=== PATIENT | male | born 1980 | race Two or more races ===

== ENCOUNTER 2020-02-11 08:43 | Emergency (ER) | payer OTHER, SELFPAY ==
[2020-02-11 08:53] VITALS: BP 122/71; PULSE 84; RESP 17; TEMP 36.7; O2SAT 97; BMI 29.2
--- NOTE | 2020-02-11 08:55 | CT_ITS ---
EXAMINATION: CT HEAD WITHOUT CONTRAST CT CERVICAL SPINE WITHOUT CONTRAST CLINICAL INFORMATION: Fall COMPARISON: None. TECHNIQUE: Multidetector CT imaging of the head and cervical spine was performed without the use of intravenous contrast. Multiplanar reformats are reviewed. DLP: 1196 mGy-cm. FINDINGS: There is no evidence of acute intracranial hemorrhage or territorial infarction. No abnormal mass effect or midline shift is seen. Marie to white matter differentiation is well preserved. No extra-axial fluid collections are identified. The ventricles are normal in size. There is no abnormal attenuation within the brain parenchyma. The osseous structures and soft tissues are normal. The mastoid air cells and visualized portions of the paranasal sinuses are well-aerated. Atlantooccipital alignment is maintained. The vertebral bodies and posterior elements align normally. No acute fracture or subluxation. Vertebral body heights and intervertebral disc spaces are preserved. No significant degenerative changes are appreciated. No central canal or foraminal narrowing. The cervicomedullary junction and spinal cord are grossly unremarkable. The paraspinal soft tissues are unremarkable. The imaged lung apices are clear CT/CT head/brain wo con IMPRESSION: No acute intracranial pathology.c No cervical spine fracture or subluxation.
--- NOTE | 2020-02-11 08:55 | CT_ITS ---
EXAMINATION: CT HEAD WITHOUT CONTRAST CT CERVICAL SPINE WITHOUT CONTRAST CLINICAL INFORMATION: Fall COMPARISON: None. TECHNIQUE: Multidetector CT imaging of the head and cervical spine was performed without the use of intravenous contrast. Multiplanar reformats are reviewed. DLP: 1196 mGy-cm. FINDINGS: There is no evidence of acute intracranial hemorrhage or territorial infarction. No abnormal mass effect or midline shift is seen. Marie to white matter differentiation is well preserved. No extra-axial fluid collections are identified. The ventricles are normal in size. There is no abnormal attenuation within the brain parenchyma. The osseous structures and soft tissues are normal. The mastoid air cells and visualized portions of the paranasal sinuses are well-aerated. Atlantooccipital alignment is maintained. The vertebral bodies and posterior elements align normally. No acute fracture or subluxation. Vertebral body heights and intervertebral disc spaces are preserved. No significant degenerative changes are appreciated. No central canal or foraminal narrowing. The cervicomedullary junction and spinal cord are grossly unremarkable. The paraspinal soft tissues are unremarkable. The imaged lung apices are clear CT/CT cervical spine wo con IMPRESSION: No acute intracranial pathology.c No cervical spine fracture or subluxation.
--- NOTE | 2020-02-11 08:55 | XR_ITS ---
EXAMINATION: XR SHOULDER, LEFT XR RIBS, LEFT XR LUMBAR SPINE XR SACRUM AND COCCYX CLINICAL INFORMATION: Fall off 6 foot ladder with left shoulder pain, left rib pain and low back pain. COMPARISON: Left rib radiographs 06/03/2018. TECHNIQUE: Left shoulder, AP and transscapular Y views, 4 views of the left ribs including a PA chest, AP and lateral views of the lumbar spine and 3 views of the sacrum and coccyx. FINDINGS: Left shoulder: Normal alignment without fracture or dislocation seen. Left RIBS: The lungs are clear with no evidence of pneumothorax or pleural effusion. The heart and mediastinum are not widened. No displaced rib fractures are seen. No evidence of left clavicle fracture. Lumbar spine: Alignment, vertebral body and disc height is maintained without evidence of fracture. Sacrum and coccyx: The visualized bones of the pelvis are normal. No sacral or coccygeal fractures are demonstrated. Alignment is maintained. XR/XR sacrum coccyx min 2V IMPRESSION: No visible left shoulder, left rib or lumbosacral spine fractures are demonstrated. Normal alignment.
--- NOTE | 2020-02-11 08:55 | XR_ITS ---
EXAMINATION: XR SHOULDER, LEFT XR RIBS, LEFT XR LUMBAR SPINE XR SACRUM AND COCCYX CLINICAL INFORMATION: Fall off 6 foot ladder with left shoulder pain, left rib pain and low back pain. COMPARISON: Left rib radiographs 06/03/2018. TECHNIQUE: Left shoulder, AP and transscapular Y views, 4 views of the left ribs including a PA chest, AP and lateral views of the lumbar spine and 3 views of the sacrum and coccyx. FINDINGS: Left shoulder: Normal alignment without fracture or dislocation seen. Left RIBS: The lungs are clear with no evidence of pneumothorax or pleural effusion. The heart and mediastinum are not widened. No displaced rib fractures are seen. No evidence of left clavicle fracture. Lumbar spine: Alignment, vertebral body and disc height is maintained without evidence of fracture. Sacrum and coccyx: The visualized bones of the pelvis are normal. No sacral or coccygeal fractures are demonstrated. Alignment is maintained. XR/XR ribs LT min 3V w CXR1V IMPRESSION: No visible left shoulder, left rib or lumbosacral spine fractures are demonstrated. Normal alignment.
--- NOTE | 2020-02-11 08:55 | XR_ITS ---
EXAMINATION: XR SHOULDER, LEFT XR RIBS, LEFT XR LUMBAR SPINE XR SACRUM AND COCCYX CLINICAL INFORMATION: Fall off 6 foot ladder with left shoulder pain, left rib pain and low back pain. COMPARISON: Left rib radiographs 06/03/2018. TECHNIQUE: Left shoulder, AP and transscapular Y views, 4 views of the left ribs including a PA chest, AP and lateral views of the lumbar spine and 3 views of the sacrum and coccyx. FINDINGS: Left shoulder: Normal alignment without fracture or dislocation seen. Left RIBS: The lungs are clear with no evidence of pneumothorax or pleural effusion. The heart and mediastinum are not widened. No displaced rib fractures are seen. No evidence of left clavicle fracture. Lumbar spine: Alignment, vertebral body and disc height is maintained without evidence of fracture. Sacrum and coccyx: The visualized bones of the pelvis are normal. No sacral or coccygeal fractures are demonstrated. Alignment is maintained. XR/XR shoulder LT min 2V IMPRESSION: No visible left shoulder, left rib or lumbosacral spine fractures are demonstrated. Normal alignment.
--- NOTE | 2020-02-11 08:55 | XR_ITS ---
EXAMINATION: CR LEFT FOREARM. CR LEFT WRIST. CLINICAL INFORMATION: Patient fell of a 6 foot ladder and is complaining of left distal forearm and wrist pain. COMPARISON: None TECHNIQUE: Frontal and lateral views of the left forearm performed on 3 images. 3 views of the left wrist. FINDINGS: Left forearm and wrist: Mild dorsal soft tissue swelling about the wrist. There is subtle irregularity of the distal radial metaphyseal cortex, most likely representing irregularities of the axial diffusion plate. No definite fracture lucency or disruption of the bony trabeculae is seen. No acute fracture or dislocation. No radiopaque foreign body in the soft tissues. No elbow joint effusion. Mild cystic changes in the carpal bones. XR/XR forearm LT 2V IMPRESSION: No definite acute fracture of the left forearm or wrist. As discussed above, there is slight irregularity of the distal radial cortex, most likely related to irregularities of the epiphyseal fusion plate. Close clinical correlation is requested. Given the patient's history of trauma and associated soft tissue swelling about the wrist, if patient's symptoms do not resolve as anticipated, repeat radiograph of the left wrist is recommended for reassessment and exclusion of a subtle occult radial fracture.
--- NOTE | 2020-02-11 08:55 | XR_ITS ---
EXAMINATION: XR SHOULDER, LEFT XR RIBS, LEFT XR LUMBAR SPINE XR SACRUM AND COCCYX CLINICAL INFORMATION: Fall off 6 foot ladder with left shoulder pain, left rib pain and low back pain. COMPARISON: Left rib radiographs 06/03/2018. TECHNIQUE: Left shoulder, AP and transscapular Y views, 4 views of the left ribs including a PA chest, AP and lateral views of the lumbar spine and 3 views of the sacrum and coccyx. FINDINGS: Left shoulder: Normal alignment without fracture or dislocation seen. Left RIBS: The lungs are clear with no evidence of pneumothorax or pleural effusion. The heart and mediastinum are not widened. No displaced rib fractures are seen. No evidence of left clavicle fracture. Lumbar spine: Alignment, vertebral body and disc height is maintained without evidence of fracture. Sacrum and coccyx: The visualized bones of the pelvis are normal. No sacral or coccygeal fractures are demonstrated. Alignment is maintained. XR/XR lumbar spine 2-3V IMPRESSION: No visible left shoulder, left rib or lumbosacral spine fractures are demonstrated. Normal alignment.
--- NOTE | 2020-02-11 09:01 | XR_ITS ---
EXAMINATION: CR LEFT FOREARM. CR LEFT WRIST. CLINICAL INFORMATION: Patient fell of a 6 foot ladder and is complaining of left distal forearm and wrist pain. COMPARISON: None TECHNIQUE: Frontal and lateral views of the left forearm performed on 3 images. 3 views of the left wrist. FINDINGS: Left forearm and wrist: Mild dorsal soft tissue swelling about the wrist. There is subtle irregularity of the distal radial metaphyseal cortex, most likely representing irregularities of the axial diffusion plate. No definite fracture lucency or disruption of the bony trabeculae is seen. No acute fracture or dislocation. No radiopaque foreign body in the soft tissues. No elbow joint effusion. Mild cystic changes in the carpal bones. XR/XR wrist LT min 3V IMPRESSION: No definite acute fracture of the left forearm or wrist. As discussed above, there is slight irregularity of the distal radial cortex, most likely related to irregularities of the epiphyseal fusion plate. Close clinical correlation is requested. Given the patient's history of trauma and associated soft tissue swelling about the wrist, if patient's symptoms do not resolve as anticipated, repeat radiograph of the left wrist is recommended for reassessment and exclusion of a subtle occult radial fracture.
--- NOTE | 2020-02-11 09:03 | ED.EXTPRO ---
HPI - Extremity Problem General Chief complaint: Extremity Injury, Upper Stated complaint: L SIDE NUMBNESS Time Seen by Provider: 02/11/20 08:55 Source: patient and industrial engineering intern ( [place] language) Mode of arrival: ambulatory Limitations: no limitations History of Present Illness HPI Narrative: 40-year-old male presented after fell off a 6 ft ladder, landed on his left side, complains of head injury to the left side, few seconds of LOC, complain of neck pain, complained of left shoulder pain, left ribs pain, and left forearm pain. fall have been 1 hour ago, described pain as constant and dull, rated as 10/10, pain with no radiation, other than pain patient declined any other associated factor, nothing relieved the pain or made it worse. Related Data Previous Rx's Medication Instructions Recorded ibuprofen 800 mg PO Q8H PRN #30 tab 02/11/20 oxycodone 5 mg PO Q8H PRN #10 cap 02/11/20 Allergies Allergy/AdvReac Type Severity Reaction Status Date / Time No Known Allergies Allergy Unverified 12/28/19 18:59 [No Known Allergies*] Review of Systems Review of Systems: all other systems are reviewed and are negative Constitutional: Reports as per HPI and Reports no additional constitutional complaints Eyes: Reports as per HPI and Reports no additional eye complaints Reports system reviewed and no additional complaints, except as documented Cardiovascular: Reports as per HPI and Reports no additional cardiovascular complaints Respiratory: Reports as per HPI and Reports no additional respiratory complaints Gastrointestinal: Reports as per HPI and Reports no additional gastrointestinal complaints Genitourinary: Reports no additional female genitourinary complaints Musculoskeletal: Reports no additional musculoskeletal complaints Skin/Breast: Reports system reviewed and no additional complaints, except as docu Psychiatric: Reports no additional psychiatric complaints Endocrine: Reports no additional endocrine complaints Hematologic/Lymphatic: Reports no additional hematologic/lymphatic complaints Allergic/Immunologic: Reports no additional allergic/immunologic complaints Reports system reviewed and no additional complaints, except as documented and Reports Abnormal speech present [facility] Past Medical History Medical History Insulin dependent diabetes mellitus Social History Social History Alcohol intake: never Smoking Status: Never smoker Use of substances other than those prescribed or required for medical reasons: No Advance Directives: No Advance Directives Information Provided: No Physical Exam Vital Signs: Vital Signs: Vital Signs Temp Pulse Resp BP Pulse Ox 02/11/20 10:00 98.2 F 94 16 124/78 98 02/11/20 09:09 16 02/11/20 08:53 98.1 F 84 17 122/71 97 Body Mass Index 29.2 vital signs have been reviewed as normal and appeared to be correct. Blood pressure normal. Heart rate normal. Respiration rate normal. Temperature normal. Oxygen saturation normal. Appearance: Alert. Oriented X3. No acute distress. Head: Normal external exam. Normocephalic. mild left-sided tenderness with no facial step-off, No Patel signs noted. No raccoon eyes noted Eyes: PERRLA. EOMI. Conjunctiva and sclera normal. Eyelids normal. ENT: EAC normal. TM's Normal. Pharynx normal. Uvula midline. Moist mucous membranes. No trismus noted. No drooling noted. No muffled voice noted. Neck: Normal inspection. Neck supple. FROM. No adenopathy. Thyroid Normal. No meningeal signs. No neck mass noted. positive midline about C6-C7 tenderness but no step-off. CVS: Normal heart rate and rhythm. Heart sound normal. No murmurs noted. Pulses normal throughout. Respiratory: No respiratory distress. Painless inspiration. Breath sounds normal. No wheezes/rales/rhonchi noted. Diffuse left-sided ribs pain.. No accessory muscle usage noted or decreased air movement noted. Abdomen: Soft and nontender. Bowel sounds normal in all 4 quadrants. No distention noted. No organomegaly noted. No visible injury noted. Back: No CVA tenderness. Full range of motion noted. Diffuse tenderness more on the lumbar/ sacrum region. Skin: Skin warm and dry. Normal skin color. Normal skin turgor. No rashes/lesions/lacerations noted. Extremities: No lower extremity edema. Extremities exhibit normal range of motion. Tenderness on the left shoulder, held in adduction position was tender abduction, no deformity, neurovascularly intact, distal left forearm a tenderness with swelling, neurovascular exam is intact distally. Neuro: Oriented X 3. No motor deficit. No sensory deficit. Reflexes normal. GCS 15 Course Course Course Narrative: 40-year-old male status post fall from 6 ft ladder landed on his left side, patient complained of left-sided pain, positive head injury with LOC and neck pain. Will obtain multiple radiographic study to rule out acute fracture , pain control with analgesia. MDM - Extremity (Nontraumatic) MDM Narrative Medical decision making narrative: Assessment and plan. 40-year-old male status post fall from 6 ft ladder height landed on his left side, complaining of multiple pain in the head, neck, left shoulder, left forearm, left wrist, lower back, left side of the chest. All radiographic studies of the above are negative for acute fracture. Will discharge the patient with analgesia medication and NSAIDs. Imaging Data CT scan - head: Radiologist's impression: No acute intracranial pathology. Cervical spine CT: Radiologist's impression: no acute cervical spine fracture. Left forearm x-ray: Radiologist's impression: no acute fracture. Lumbar spine/ sacrum x-ray: Radiologist's impression: no acute fracture. Left ribs/ chest x-ray: Radiologist's impression: no acute fracture or acute intrathoracic pathology. Discharge Plan Discharge Clinical Impression: Multiple contusions Fall Qualifiers: Encounter type: initial encounter Qualified Code(s): W19.XXXA - Unspecified fall, initial encounter Patient Disposition: Home, Self-Care Instructions: Contusion in Adults (ED) Prescriptions: New ibuprofen 800 mg tablet 800 mg PO Q8H PRN (Reason: pain) Qty: 30 RF: 0 oxycodone 5 mg capsule 5 mg PO Q8H PRN (Reason: pain) Qty: 10 RF: 0 Referrals: Physician,Unknown [Primary Care Provider] - 2 days
[2020-02-11 09:09] VITALS: RESP 16
[2020-02-11] MEDS: Morphine Sulfate 2 MG/ML CARTRIDGE IM (09:09)
[2020-02-11] MEDS: Ketorolac Tromethamine 60 MG/2 ML VIAL IM (09:09)
[2020-02-11 10:00] VITALS: BP 124/78; PULSE 94; RESP 16; TEMP 36.8; O2SAT 98
[2020-02-11] MEDS: oxyCODONE HCl Immed Release 5 MG TABLET PO (10:18)
== END 2020-02-11 10:56 | disposition home or self-care (01) ==
PROVIDERS: Emergency Provider Emergency Medicine
DX: S10.93XA Contusion of unspecified part of neck, initial encounter (principal); G44.309 Post-traumatic headache, unspecified, not intractable; M54.2 Cervicalgia; M79.602 Pain in left arm; M25.512 Pain in left shoulder; M54.5 Low back pain; R07.81 Pleurodynia; W11.XXXA Fall on and from ladder, initial encounter; Y92.9 Unspecified place or not applicable; Y99.9 Unspecified external cause status
CPT/HCPCS: 70450; 71101; 72100; 72125; 72220; 73030; 73090; 73110; 96372; 99284; J1885; J2270

== ENCOUNTER 2020-12-08 19:33 | Emergency (ER) | payer OTHER, SELFPAY ==
--- NOTE | 2020-12-08 | ECG_ITS ---
Test Reason : DYSPNEA Blood Pressure : / mmHG Vent. Rate : 065 BPM Atrial Rate : 065 BPM P-R Int : 154 ms QRS Dur : 102 ms QT Int : 392 ms P-R-T Axes : 026 007 026 degrees QTc Int : 407 ms Normal sinus rhythm Incomplete right bundle branch block Borderline ECG When compared with ECG of 03-JUN-2018 22:51, No significant change was found Referred By: Generic ED Physician Electronically Signed By:BILLY HUI
--- NOTE | ~2020-12-08 | CT_ITS ---
EXAMINATION: CT ABDOMEN AND PELVIS WITH CONTRAST CLINICAL INFORMATION: Left-sided abdominal pain, suspect diverticulitis COMPARISON: None TECHNIQUE: Multidetector volumetric images were obtained from the superior aspect of the liver through the pubic symphysis following administration 85 mL of Omnipaque 350 intravenous contrast. Sagittal and coronal reformatted images were obtained on the technologist's workstation. Oral contrast: No This CT examination was performed using dose optimization techniques as appropriate, variously including the following: *Automated exposure control *Adjustment of mA and/or kV according to patient size (this includes techniques or standardized protocols for targeted exams where dose is matched to indication/reason for exam; i.e. extremities or head) *Use of iterative reconstruction technique DLP: 618 mGy-cm FINDINGS: LUNG BASES: The visualized lung bases are unremarkable. LIVER, GALLBLADDER, AND BILIARY TREE: The liver is normal in size, shape, and attenuation. No focal hepatic lesion or biliary ductal dilatation is present. The gallbladder is unremarkable with no evidence of radiopaque gallstones, gallbladder wall thickening, or obvious pericholecystic inflammatory changes. PANCREAS: Unremarkable. SPLEEN: Unremarkable. ADRENAL GLANDS: Unremarkable. KIDNEYS AND URETERS: The kidneys are normal in size, shape, and attenuation. No hydronephrosis, hydroureter, or calculi seen. No perinephric stranding. BLADDER: Unremarkable. GASTROINTESTINAL TRACT: The small and large bowel are unremarkable. The appendix is unremarkable. ABDOMINAL WALL: No significant hernia is appreciated. LYMPH NODES: Normal. VASCULAR: Unremarkable. PELVIC VISCERA: Unremarkable. OSSEOUS STRUCTURES: Unremarkable. CT/CT abdomen pelvis w con IMPRESSION: No acute CT findings. No evidence of diverticulitis.
--- NOTE | ~2020-12-08 | XR_ITS ---
EXAMINATION: XR CHEST CLINICAL INFORMATION: Chest pain COMPARISON: 02/11/2020 TECHNIQUE: Frontal view of the chest was obtained. FINDINGS: Normal symmetric lung volumes. No parenchymal consolidation. No pleural effusion. No pneumothorax. Cardiomediastinal silhouette and pulmonary vascularity are within normal limits. No acute osseous abnormalities. XR/XR chest 1V IMPRESSION: Unremarkable examination.
[2020-12-08 19:37] VITALS: BP 133/79; PULSE 74; RESP 18; TEMP 36.8; O2SAT 98; BMI 27.9
--- NOTE | 2020-12-08 19:44 | PC.NURSE ---
called for ekg to be performed
[2020-12-08 20:00] VITALS: BP 124/85; PULSE 70; RESP 26; TEMP 36.7; O2SAT 98
[2020-12-08 21:30] LABS: MANUAL DIFF FLAG NO
[2020-12-08 21:31] LABS: Basophils Absolute Auto 0.1 X10*3/uL (0.0-0.2); Basophils Percent Auto 0.5 % (0-2); Eosinophils Absolute Auto 0.3 X10*3/uL (0.0-0.4); Eosinophils Percent Auto 2.2 % (0-4); Hematocrit 42.8 % (42-52); Hemoglobin 14.5 g/dl (14.0-18.0); Imm Gran Abs Auto 0.04 X10*3/uL (0.00-0.03); Imm Gran Pct Auto 0.3 % (0.0-0.4); Lymphocytes Absolute Auto 4.7 X10*3/uL (1.2-4.9); Mean Corpuscular HGB Conc 33.9 g/dl (31.0-36.0); Mean Corpuscular Hemoglobin 30.1 pg (27.0-33.0); Mean Corpuscular Volume 88.8 fL (80-98); Mean Platelet Volume 9.6 fL (9.4-12.4); Monocytes Percent Auto 7.9 % (2-11); Neutrophils Absolute Auto 6.1 X10*3/uL (2.0-8.3); Neutrophils Percent Auto 50.1 % (45-73); Platelet Count 328 X10*3/uL (160-400); Red Blood Count 4.82 X10*6/uL (4.60-5.80); White Blood Count 12.1 X10*3/uL (4.8-10.8)
--- NOTE | 2020-12-08 21:31 | ED_ITS ---
HPI - Chest Pain General Chief Complaint: Chest Pain Stated Complaint: Abd Pain Time Seen by Provider: 12/08/20 21:31 Source: patient Mode of arrival: ambulatory History of Present Illness HPI narrative: 40-year-old male with history of diabetes presents with 1 day of increasing abdominal discomfort without associated nausea, vomiting, fever, chills, but states that he has become more distended with minimal passing of flatus and difficulty with having a bowel movement this morning. Patient states that the fullness of his abdomen is pushing up on his heart which is further exacerbated by deep inspiration. Otherwise, he denies any shortness of breath or palpitations. Related Data Home Medications Medication Instructions Recorded Confirmed alcohol swabs (Alcohol Prep Pads) 1 pledget TOPICAL Q3D 12/08/20 12/08/20 gabapentin 100 mg capsule 1 cap PO BID PRN 12/08/20 12/08/20 insulin lispro 100 unit/mL 0 - 100 unit SUBCUT DAILY 12/08/20 12/08/20 subcutaneous solution (Humalog U-100 Insulin) Allergies Allergy/AdvReac Type Severity Reaction Status Date / Time No Known Allergies Allergy Verified 12/08/20 19:37 [No Known Allergies*] Review of Systems Review of Systems: Pertinent positives and negatives as stated in HPI 10 point review of systems is otherwise negative. PMFSH Past Medical History Source: nursing notes reviewed Medical History Insulin dependent diabetes mellitus Social History Social History Alcohol intake: never Patient Tobacco Use Status: Never used Tobacco Use of substances other than those prescribed or required for medical reasons: No Advance Directives: No Advance Directives Information Provided: No Physical Exam Vital Signs: Vital Signs: Last Vital Signs Temp 98.1 F 12/08/20 20:00 Pulse 68 12/08/20 22:00 Resp 17 12/08/20 22:00 BP 130/84 12/08/20 22:00 Pulse Ox 98 12/08/20 22:00 Body Mass Index 27.9 VITAL SIGNS: Reviewed. GENERAL: Well developed, well nourished, in no acute distress. HEAD: Normocephalic/atraumatic EYES: PERRLA, EOMI OROPHARYNX: no oral lesions noted, posterior pharynx clear LUNGS: Normal breath sounds. No adventitious sounds or accessory muscle use. SpO2<98> CARDIOVASCULAR: Regular rate and rhythm without noted murmurs, no JVD or lower extremity edema. ABDOMEN: Soft, left-sided abdominal pain with voluntary guarding but no rebound, non-distended with bowel sounds. SKIN: Inspection of the skin reveals no rashes NEUROLOGIC: Alert and oriented x 4. Course Course Course Narrative: 40-year-old male with history and clinical presentation suggestive of renal colic, diverticulitis. Review of all investigations without acute findings and noted leukocytosis is likely stress response, patient states that he is having difficulties with having bowel movements. Patient will be provided with an extensive bowel regimen and instructed to follow-up with his primary care provider. MDM - Chest Pain Lab Data Result diagrams: 12/08/20 21:25 12/08/20 21:25 Labs: Lab Results 12/08/20 12/08/20 12/08/20 Range/Units 21:25 21:25 21:25 WBC 12.1 H (4.8-10.8) X10*3/uL RBC 4.82 (4.60-5.80) X10*6/uL Hgb 14.5 (14.0-18.0) g/dl Hct 42.8 (42-52) % MCV 88.8 (80-98) fL MCH 30.1 (27.0-33.0) pg MCHC 33.9 (31.0-36.0) g/dl RDW 12.0 (11.0-16.0) % Plt Count 328 (160-400) X10*3/uL MPV 9.6 (9.4-12.4) fL Immature Gran % (Auto) 0.3 (0.0-0.4) % Neut % (Auto) 50.1 (45-73) % Lymph % (Auto) 39.0 (20-40) % [place] % (Auto) 7.9 (2-11) % Eos % (Auto) 2.2 (0-4) % Baso % (Auto) 0.5 (0-2) % Lymph # (Auto) 4.7 (1.2-4.9) X10*3/uL [place] # (Auto) 1.0 (0.1-1.2) X10*3/uL Eos # (Auto) 0.3 (0.0-0.4) X10*3/uL Baso # (Auto) 0.1 (0.0-0.2) X10*3/uL Abs Immat Gran (auto) 0.04 H (0.00-0.03) X10*3/uL Absolute Neuts (auto) 6.1 (2.0-8.3) X10*3/uL Absolute Nucleated RBC 0.000 (0.0-0.012) X10*3/uL Nucleated RBC % (auto) 0.0 (0.0-0.2) /100WBC Sodium 139 (135-145) mmol/L Potassium 4.4 (3.3-5.1) mmol/L Chloride 108 (96-108) mmol/L Carbon Dioxide 25 (22-29) mmol/L Anion Gap 10 L (12-20) BUN 14 (9-16) mg/dL Creatinine 0.75 (0.5-1.4) mg/dL Estim Creat Clear Calc 126.0 Estimated GFR > 60 Random Glucose 163 H (60-115) mg/dL Calcium 9.4 (8.4-10.2) mg/dL Troponin I High Sens < 3.5 (<3.5-35.0) ng/L 12/09/20 Range/Units 00:26 WBC (4.8-10.8) X10*3/uL RBC (4.60-5.80) X10*6/uL Hgb (14.0-18.0) g/dl Hct (42-52) % MCV (80-98) fL MCH (27.0-33.0) pg MCHC (31.0-36.0) g/dl RDW (11.0-16.0) % Plt Count (160-400) X10*3/uL MPV (9.4-12.4) fL Immature Gran % (Auto) (0.0-0.4) % Neut % (Auto) (45-73) % Lymph % (Auto) (20-40) % [place] % (Auto) (2-11) % Eos % (Auto) (0-4) % Baso % (Auto) (0-2) % Lymph # (Auto) (1.2-4.9) X10*3/uL [place] # (Auto) (0.1-1.2) X10*3/uL Eos # (Auto) (0.0-0.4) X10*3/uL Baso # (Auto) (0.0-0.2) X10*3/uL Abs Immat Gran (auto) (0.00-0.03) X10*3/uL Absolute Neuts (auto) (2.0-8.3) X10*3/uL Absolute Nucleated RBC (0.0-0.012) X10*3/uL Nucleated RBC % (auto) (0.0-0.2) /100WBC Sodium (135-145) mmol/L Potassium (3.3-5.1) mmol/L Chloride (96-108) mmol/L Carbon Dioxide (22-29) mmol/L Anion Gap (12-20) BUN (9-16) mg/dL Creatinine (0.5-1.4) mg/dL Estim Creat Clear Calc Estimated GFR Random Glucose (60-115) mg/dL Calcium (8.4-10.2) mg/dL Troponin I High Sens < 3.5 (<3.5-35.0) ng/L ECG Data ECG #1: Attestation: I personally reviewed and interpreted this ECG as follows: Prior ECG tracings: available for review (06/03/2018 no acute changes on comparison) Interpretation: Normal sinus rhythm, HR-65, no STEMI, incomplete RBBB, CA/QRS/QTC within normal limits. Discharge Plan Discharge Clinical Impression: Abdominal discomfort, Constipation Patient Disposition: Home, Self-Care Instructions: Polyethylene Glycol 3350 (By mouth), Constipation (ED), High Fiber Diet (ED), Fleet Enema (ED) Additional Instructions: 1. Increase water intake, increase fresh fruits and vegetables. 2. MiraLax, available [id number], began taking twice daily until you have regular daily soft bowel movements. 3. Follow-up with your primary care provider for re-evaluation and further outpatient management. Return to the ER for acute worsening of symptoms. Prescriptions: No Action alcohol swabs [Alcohol Prep Pads] Pads, Medicated 1 pledget topical Q3D RF: 0 gabapentin 100 mg capsule 1 cap PO BID PRN (Reason: Pain) RF: 0 insulin lispro [Humalog U-100 Insulin] 100 unit/mL solution 0 - 100 unit subcut DAILY RF: 0 Referrals: Physician,Unknown [Primary Care Provider] - 2 days
[2020-12-08 21:58] LABS: Anion Gap 10 (12-20); Blood Urea Nitrogen 14 mg/dL (9-16); Calcium 9.4 mg/dL (8.4-10.2); Carbon Dioxide 25 mmol/L (22-29); Chloride 108 mmol/L (96-108); Estimated Glomerular Filt Rate > 60; Glucose Random 163 mg/dL (60-115); Potassium 4.4 mmol/L (3.3-5.1); Sodium 139 mmol/L (135-145)
[2020-12-08 22:00] VITALS: BP 130/84; PULSE 68; RESP 17; O2SAT 98
[2020-12-08 22:03] LABS: Troponin-I High Sensitivity < 3.5 ng/L (<3.5-35.0)
[2020-12-08] MEDS: iohexoL 350 MG/ML 100 ML INFUS..BTL IV (22:56)
[2020-12-09 01:10] LABS: Troponin-I High Sensitivity < 3.5 ng/L (<3.5-35.0)
== END 2020-12-09 01:41 | disposition home or self-care (01) ==
PROVIDERS: Emergency Provider Student in an Organized Health Care Education/Training Program
DX: K59.00 Constipation, unspecified (principal); R10.9 Unspecified abdominal pain; R07.9 Chest pain, unspecified; Z79.899 Other long term (current) drug therapy
CPT/HCPCS: 36415; 71045; 74177; 80048; 84484; 85025; 93005; 99284; 99285; Q9967

== ENCOUNTER 2021-01-14 12:55 | Outpatient (RCR) | payer OTHER, SELFPAY | END 2021-04-28 09:46 | disposition home or self-care (01) | LOC: HO.PTCHIC 12:55 | PROVIDERS: PCP Internal Medicine; Visit Provider Physical Medicine & Rehabilitation | DX: M54.50 Low back pain, unspecified (principal) | CPT/HCPCS: 97110; 97161 ==